=== PATIENT | male | born 1980 | race Caucasian/White ===

== ENCOUNTER 2021-11-14 02:15 | Emergency (ER) | payer OTHER ==
[~2021-11-14] VITALS: Ht 172.7 cm; Wt 100.0 kg
[2021-11-14] MEDS ORDERED: LIDOCAINE 2% w/EPI 1:100:000 30mL injection MDV**cath lab 1 only SQ ONE (02:30)
[2021-11-14] MEDS ORDERED: TETanus/Pertussis (Acell)/Diphther VAC/PF (Tdap-Adult) 0.5ml syringe IMVAC ONE (02:30)
--- NOTE | 2021-11-14 02:50 | NUR ---
PT DOES NOT WANT TO PRESS CHARGES.
--- NOTE | 2021-11-14 02:55 | NUR ---
[facility] HAS BEEN CALLED.
--- NOTE | 2021-11-14 03:03 | NUR ---
SPOKE TO Sriram OVER THE PHONE. CASE NUMBER IS [id number]
[2021-11-14 03:40] VITALS: BP 142/86
== END 2021-11-14 03:49 | disposition home or self-care (01) ==
LOC: ER 02:16
DX: S01.81XA Laceration without foreign body of other part of head, initial encounter (principal); Z88.1 Allergy status to other antibiotic agents; Y93.89 Activity, other specified; Y92.89 Other specified places as the place of occurrence of the external cause; Y99.8 Other external cause status
CPT/HCPCS: 12011; 70450; 70486; 90471; 90715; 99284

== ENCOUNTER 2021-11-18 03:55 | Emergency (ER) | payer OTHER ==
--- NOTE | 2021-11-18 04:30 | NUR ---
not in lobby
== END 2021-11-18 05:02 | disposition left against medical advice (07) ==
LOC: ER 03:57
DX: Z48.02 Encounter for removal of sutures (principal); Z53.21 Procedure and treatment not carried out due to patient leaving prior to being seen by health care provider

== ENCOUNTER 2022-01-16 02:21 | Emergency (ER) | payer SELFPAY | END 2022-01-16 03:51 | disposition left against medical advice (07) | LOC: ER 02:22 | DX: Z53.21 Procedure and treatment not carried out due to patient leaving prior to being seen by health care provider (principal); K08.89 Other specified disorders of teeth and supporting structures ==